=== PATIENT | male | born 1980 | race Caucasian/White ===

== ENCOUNTER 2017-04-12 02:18 | Emergency (ER) | payer OTHER ==
[2017-04-12 02:24] VITALS: TEMP 97.4; BMI 26.6
[2017-04-12] MEDS ORDERED: SODIUM CHLORIDE 1,000 ML IV STA (02:38)
--- NOTE | 2017-04-12 02:48 | PDOC ---
History of Present Illness - General Chief Complaint: Syncope/Near Syncope Stated Complaint: FAINTED Time Seen by Provider: 04/12/17 02:25 History Source: Patient, Spouse Exam Limitations: No Limitations - History of Present Illness Initial Comments: 04/12/17 02:44 37yo male patient with no significant past medical history presented to ED via EMS. Patient states he was at a friends house drinking alcohol ([employer] x 5 tall cans). He states he went into bedroom to get some rest, after an hour, he got up to use bathroom but felt dizzy and lightheaded. Patient ambulated into living room where he lied down on floor and told his , he wasn't feeling well. called 911. He denies CP, Abd pain, n/v/d, back pain, cough, congestion, fever, or any other complaints at this time. + smoker, +EtOH. Presenting Symptoms: Syncope Timing/Duration: reports: constant. denies: getting worse, changing over time, intermittent, resolved prior to arrival, gone now, other Severity/Quality: denies: mild, moderate, severe, aching, burning, dull, ingestion, pressure, sharp, stabbing, tearing, tightness, other Location: denies: substernal, central, epigastric, shoulder, back, abdomen, other Chest Pain Radiation: denies: no radiation, jaw, arms, neck, shoulders, back, sternal notch, epigastric, other Activities at Onset: denies: none, exertion, emotional upset, rest, sleep, no specific activity, eating, working, sexual intercourse, other Prior Chest Pain/Cardiac Workup: denies: No prior chest pain, No prior cardiac workup, Non-cardiac, Angina, Cardiac Cath, Cardiolye Scan, Echocardiography, Heart Attack, Pulmonary Embolism, Stress Test, Thallium Scan, Other Past History - Travel Traveled outside of the country in the last 30 days: No Close contact w/someone who was outside of country & ill: No - Past Medical History Allergies/Adverse Reactions: Allergies Allergy/AdvReac Type Severity Reaction Status Date / Time No Known Allergies Allergy Verified 04/12/17 02:23 Home Medications: Ambulatory Orders Cyclobenzaprine HCl [Flexeril] 5 mg PO TID #10 tablet 06/08/15 - Surgical History Appendectomy: Yes - Suicide/Smoking/Psychosocial Hx Smoking History: Never smoked Have you smoked in the past 12 months: No Number of Cigarettes Smoked Daily: 6 Information on smoking cessation initiated: No Hx Alcohol Use: No Drug/Substance Use Hx: No Substance Use Type: None Cardiac Specific PMH - Complaint Specific PMHX Abdominal Aortic Aneurysm: No Angina: No Cardiac Arrhythmia: No Cardiac Stent: No GERD: No Myocardial Infarction: No Pacemaker: No Pulmonary Embolus: No Valvular Heart Disease: No Peripheral Vascular Disease: No Review of Systems - Review of Systems Able to Perform ROS?: Yes Is the patient limited Turkish proficient: No Constitutional: No: Chills, Fever Respiratory: No: Cough, Wheezing Cardiac (ROS): Yes: Lightheadedness, Syncope. No: Chest Pain, Palpitations, Chest Tightness ABD/GI: No: Diarrhea, Nausea, Poor Appetite, Vomiting : No: Burning, Dysuria, Hematuria Musculoskeletal: No: Back Pain Integumentary: Yes: Sweating All Other Systems: Reviewed and Negative *Physical Exam - Vital Signs Last Vital Signs Temp Pulse Resp BP Pulse Ox 97.4 F L 60 17 124/70 98 04/12/17 02:23 04/12/17 05:43 04/12/17 05:43 04/12/17 05:43 04/12/17 05:43 - Physical Exam General Appearance: Yes: Nourished, Appropriately Dressed. No: Apparent Distress, Mild Distress, Moderate Distress, Severe Distress Neck: positive: Trachea midline, Normal Thyroid, Supple. negative: Stridor, Lymphadenopathy (R), Lymphadenopathy (L) Respiratory/Chest: positive: Lungs Clear, Normal Breath Sounds. negative: Chest Tender, Respiratory Distress, Accessory Muscle Use, Labored Respiration, Rhonchi, Stridor, Wheezing Cardiovascular: positive: Regular Rhythm, Regular Rate Gastrointestinal/Abdominal: positive: Normal Bowel Sounds, Soft. negative: Tender, Flat, Distended, Guarding, Rebound, Tenderness Musculoskeletal: positive: Normal Inspection. negative: CVA Tenderness, Decreased Range of Motion, Vertebral Tenderness Extremity: positive: Normal Capillary Refill, Normal Inspection, Normal Range of Motion. negative: Swelling, Calf Tenderness, Erythema, Inflammation Integumentary: positive: Normal Color, Dry, Warm Neurologic: positive: smooth stucco resurfacer II-XII NML intact, Fully Oriented, Alert, Normal Mood/ Affect, Normal Response, Motor Strength 5/5 ED Treatment Course - LABORATORY CBC & Chemistry Diagram: 04/12/17 03:25 04/12/17 03:25 - ADDITIONAL ORDERS Additional order review: Laboratory Results 04/12/17 04/12/17 04/12/17 03:25 03:25 03:25 D-Dimer < 200 Sodium 141 Potassium 4.4 Chloride 105 Carbon Dioxide 25 Anion Gap 11 BUN 17 Creatinine 1.1 Creat Clearance w eGFR > 60 Random Glucose 103 Calcium 9.0 Total Bilirubin 0.3 AST 27 ALT 50 Alkaline Phosphatase 167 H Creatine Kinase 134 Troponin I < 0.02 Total Protein 7.3 Albumin 3.8 Alcohol, Quantitative < 5.0 04/12/17 03:25 RBC 4.86 MCV 90.1 MCHC 33.7 RDW 13.5 MPV 8.8 Neutrophils % 63.2 Lymphocytes % 27.0 Monocytes % 6.9 Eosinophils % 2.3 Basophils % 0.6 - RADIOLOGY Radiology Studies Ordered: Category Date Time Status HEAD CT WITHOUT CONTRAST [CT] Stat CT Scan 04/12/17 02:38 Taken CHEST PA & LAT [RAD] Stat Radiology 04/12/17 02:38 Taken - Medications Given in the ED: ED Medications Discontinued Medications Generic Name Dose Route Start Last Admin Trade Name Freq PRN Reason Stop Dose Admin Sodium Chloride 1,000 mls @ 1,000 mls/hr 04/12/17 02:38 04/12/17 03:37 Normal Saline - IV 04/12/17 03:37 1,000 mls/hr ASDIR STA Administration *DC/Admit/Observation/Transfer Diagnosis at time of Disposition: Syncope, near - Discharge Dispostion Disposition: HOME Condition at time of disposition: Stable Admit: No - Referrals Referrals: Justin French MD [Staff Physician] - - Patient Instructions Printed Discharge Instructions: DI for Syncope in Adults (Fainting) Additional Instructions: Follow up with Dr. French (Neurology) this week. Call to schedule appointment. Avoid alcohol at this time. Drink plenty fluids. Return if symptoms worsen or any concerns for further evaluation. Print Language: TOGOLESE - Post Discharge Activity
[2017-04-12 03:43] LABS: BASO % 0.6 % (0-2.0); EOS % 2.3 % (0-4.5); HEMATOCRIT 43.8 % (35.4-49); HEMOGLOBIN 14.8 GM/dL (11.7-16.9); MCH 30.4 pg (25.7-33.7); MCHC 33.7 g/dl (32.0-35.9); MEAN CELL VOLUME 90.1 fl (80-96); MEAN PLT VOLUME 8.8 fl (7.5-11.1); MONO % 6.9 % (3.8-10.2); NEUT % 63.2 % (42.8-82.8); PLATELET COUNT 221 K/MM3 (134-434); RBC 4.86 M/mm3 (4.00-5.60); RDW 13.5 % (11.9-15.9); WHITE BLOOD COUNT 6.8 K/mm3 (4.0-10.0)
[2017-04-12 04:15] LABS: ALBUMIN 3.8 g/dl (3.4-5.0); ANION GAP 11 (8-16); BILIRUBIN,TOTAL 0.3 mg/dL (0.2-1.0); BLOOD UREA NITROGEN 17 mg/dL (7-18); CHLORIDE 105 mmol/L (98-107); CO2 25 mmol/L (21-32); CREATININE 1.1 mg/dL (0.7-1.3); GLUCOSE,RANDOM 103 mg/dL (74-106); POTASSIUM 4.4 mmol/L (3.5-5.1); SGOT/AST 27 U/L (15-37); SGPT/ALT 50 U/L (12-78); SODIUM 141 mmol/L (136-145); TOT PROT 7.3 g/dl (6.4-8.2)
[2017-04-12 04:18] LABS: ALK PHOS 167 U/L (45-117)
[2017-04-12 05:44] VITALS: BP 124/70; PULSE 60
--- NOTE | 2017-04-12 16:40 | EKG ---
Test Reason : Blood Pressure : / mmHG Vent. Rate : 067 BPM Atrial Rate : 067 BPM P-R Int : 166 ms QRS Dur : 092 ms QT Int : 382 ms P-R-T Axes : 051 059 044 degrees QTc Int : 403 ms NORMAL SINUS RHYTHM NORMAL ECG NO PREVIOUS ECGS AVAILABLE Confirmed by SALMA LAND MD ([id number]) on 04/12/2017 4:39:52 PM Referred By: Confirmed By:SALMA LAND MD
--- NOTE | 2017-04-17 12:33 | EKG ---
Test Reason : Blood Pressure : / mmHG Vent. Rate : 066 BPM Atrial Rate : 066 BPM P-R Int : 170 ms QRS Dur : 088 ms QT Int : 386 ms P-R-T Axes : 030 058 039 degrees QTc Int : 404 ms NORMAL SINUS RHYTHM NORMAL ECG WHEN COMPARED WITH ECG OF 12-APR-2017 03:07, NO SIGNIFICANT CHANGE WAS FOUND Confirmed by NOEMI CHIU MD ([id number]) on 04/17/2017 12:33:28 PM Referred By: Confirmed By:NOEMI CHIU MD
== END 2017-04-12 06:55 | disposition home or self-care (01) ==
LOC: JER 02:18
PROC: 3E0337Z Introduction of Electrolytic and Water Balance Substance into Peripheral Vein, Percutaneous Approach (ICD-10-PCS; principal; 2017-04-12)
DX: R55 Syncope and collapse (principal); F10.10 Alcohol abuse, uncomplicated
CPT/HCPCS: 36415; 70450-TC; 71046-TC; 80053; 80307; 82550; 84484; 85025; 85379; 93005; 93010; 96360; 99282-25

== ENCOUNTER 2018-02-27 11:42 | Emergency (ER) | payer SELFPAY ==
[2018-02-27 12:01] VITALS: BP 141/90; PULSE 90; TEMP 98.5; BMI 29.0
--- NOTE | 2018-02-27 12:37 | PDOC ---
History of Present Illness - General Chief Complaint: Pain, Acute Stated Complaint: ABD PAIN Time Seen by Provider: 02/27/18 12:12 - History of Present Illness Initial Comments: 02/27/18 12:58 The patient is a 38 year old male with no significant PMH who presents for evaluation of abdominal pain. The patient reports a 2-3 day history of poorly described upper abdominal pain with associated bloating and nausea worse after meals prompting his presentation to the ED for further evaluation. He notes that he has had similar symptoms in the past but has never been evaluated for them. He notes that he also has a sense of urgency with bowel movements after eating. He otherwise denies fevers, chills, SOB, chest pain, vomiting, or changes with urination. Past History - Past Medical History Allergies/Adverse Reactions: Allergies Allergy/AdvReac Type Severity Reaction Status Date / Time No Known Allergies Allergy Verified 02/27/18 11:57 Home Medications: Ambulatory Orders Bismuth Subsalicylate [Pepto-Bismol -] 524 mg PO BID 02/27/18 Pantoprazole Sodium [Protonix -] 40 mg PO DAILY #15 tablet.ec 02/27/18 COPD: No - Surgical History Appendectomy: Yes (when 6y/o) - Suicide/Smoking/Psychosocial Hx Smoking History: Smoker current status UNK Have you smoked in the past 12 months: No Number of Cigarettes Smoked Daily: 6 Information on smoking cessation initiated: No Hx Alcohol Use: No Drug/Substance Use Hx: No Substance Use Type: None Review of Systems - Review of Systems Comments:: 02/27/18 13:01 Constitutional: No fevers, chills, fatigue, malaise HEENT: No Rhinorrhea, nasal congestion, visual changes Cardiovascular: No chest pain, syncope, palpitations, lightheadedness Respiratory: No Cough, SOB, Hemoptysis, Gastrointestinal: Abdominal pain, nausea, bloating. No Vomiting, Constipation, Diarrhea, Melena Genitourinary: No Dysuria, Frequency, Urgency, Hesitancy, Hematuria, Flank pain Musculoskeletal: No Myalgia, arthralgia Skin: No rashes, itching, bruising, pallor Neurologic: No Headache, Dizziness, Numbness, Weakness, or Tingling Psychiatric: No Hallucinations. No SI or HI *Physical Exam - Vital Signs Last Vital Signs Temp Pulse Resp BP Pulse Ox 98.5 F 90 18 141/90 98 02/27/18 11:59 02/27/18 11:59 02/27/18 11:59 02/27/18 11:59 02/27/18 11:59 - Physical Exam Comments: 02/27/18 13:02 General Appearance: Nourished. No Apparent Distress HEENT: No Pharyngeal Erythema, Tonsillar Exudate, Tonsillar Erythema Neck: No Cervical Lymphadenopathy Respiratory/Chest: Lungs Clear, Normal Breath Sounds. No Crackles, Rales, Rhonchi, Wheezing Cardiovascular: Regular Rhythm, Regular Rate. No Murmur, Gallops, Rubs Gastrointestinal/Abdominal: Normal Bowel Sounds, Soft. Mild epigastric discomfort with palpation on exam. No RUQ tenderness. Negative Jones's sign. No Guarding, Rebound, Musculoskeletal: No CVA Tenderness Extremity: Normal Capillary Refill Integumentary: Normal Color, Dry, Warm Neurologic: Fully Oriented, Alert, Normal Mood/Affect, Normal Response, Moderate Sedation - Procedure Monitoring Vital Signs: Procedure Monitoring Vital Signs Temperature 98.5 F 02/27/18 11:59 Pulse Rate 90 02/27/18 11:59 Respiratory Rate 18 02/27/18 11:59 Blood Pressure 141/90 02/27/18 11:59 O2 Sat by Pulse Oximetry (%) 98 02/27/18 11:59 ED Treatment Course - LABORATORY CBC & Chemistry Diagram: 02/27/18 12:53 02/27/18 12:53 Medical Decision Making - Medical Decision Making 02/27/18 13:02 The patient is a 38 year old male with no significant PMH who presents for evaluation of abdominal pain. Differential includes but is not limited to: Gastritis, Pancreatitis, Cholecysitits, Infectious, Metabolic Derangement. Given the patient's history and physical exam, we will obtain a cbc, cmp, lipase , gallbladder us to evaluate further. We will treat with iv fluids, zofran, pepcid and continue to monitor and reassess while here in the ED. 02/27/18 15:00 CBC, cmp, lipase are unremarkable. Gallbladder US is unremarkable as read by our radiologist. The patient reports some improvement in his symptoms and has a benign abdominal exam. We are comfortable discharging the patient home with GI follow up. We discussed the results, plan, and return precautions with the patient who voiced understanding and is agreeable with the plan. *DC/Admit/Observation/Transfer Diagnosis at time of Disposition: Abdominal pain Qualifiers: Abdominal location: unspecified location Qualified Code(s): R10.9 - Unspecified abdominal pain - Discharge Dispostion Disposition: HOME Condition at time of disposition: Stable Decision to Admit order: No - Prescriptions Prescriptions: Pantoprazole Sodium [Protonix -] 40 mg PO DAILY #15 tablet.ec - Referrals Referrals: Shen Andres DO [Staff Physician] - - Patient Instructions Printed Discharge Instructions: DI for Abdominal Pain-Adult Additional Instructions: Please return to the ER if you experience concerning or worsening symptoms including worsening difficulty breathing, weakness, or chest pain. Your lab results were normal here in the ER. Your ultrasound was normal as well. We have sent a prescription to your pharmacy for an anti-acid that you should take daily to help with your symptoms. Please call to schedule a follow up appointment with our GI specialist within 2-3 days to discuss your ER visit and further management of your symptoms. - Post Discharge Activity
[2018-02-27] MEDS ORDERED: FAMOTIDINE 20 MG/50 ML IVPB 20 MG/50 ML MG IVPB ONE ×2 (12:41→12:53)
[2018-02-27] MEDS ORDERED: SODIUM CHLORIDE 1,000 ML IV STA (12:41)
[2018-02-27] MEDS ORDERED: ONDANSETRON 4 MG/2 ML VIAL IVPUSH ONE (12:41)
[2018-02-27] MEDS ORDERED: ONDANSETRON 4 MG/2 ML VIAL ONE (12:53)
[2018-02-27 13:07] LABS: BASO % 0.5 % (0-2.0); EOS % 1.4 % (0-4.5); HEMATOCRIT 42.2 % (35.4-49); LYMPH % 30.2 % (8-40); MCH 31.1 pg (25.7-33.7); MCHC 35.5 g/dl (32.0-35.9); MEAN CELL VOLUME 87.5 fl (80-96); MEAN PLT VOLUME 8.6 fl (7.5-11.1); MONO % 9.1 % (3.8-10.2); NEUT % 58.8 % (42.8-82.8); PLATELET COUNT 272 K/MM3 (134-434); RBC 4.82 M/mm3 (4.00-5.60); RDW 13.7 % (11.9-15.9)
[2018-02-27 13:38] LABS: ALBUMIN 4.1 g/dl (3.4-5.0); ALK PHOS 191 U/L (45-117); ANION GAP 7 MMOL/L (8-16); BILIRUBIN,TOTAL 0.4 mg/dL (0.2-1); BLOOD UREA NITROGEN 12 mg/dL (7-18); CHLORIDE 106 mmol/L (98-107); CO2 25 mmol/L (21-32); CREATININE 0.9 mg/dL (0.55-1.3); GLUCOSE,RANDOM 76 mg/dL (74-106); LIPASE 156 U/L (73-393); POTASSIUM 4.1 mmol/L (3.5-5.1); SGOT/AST 42 U/L (15-37); SGPT/ALT 76 U/L (13-61); SODIUM 138 mmol/L (136-145); TOT PROT 7.6 g/dl (6.4-8.2)
--- NOTE | 2018-02-27 14:51 | PDOC ---
Attending Attestation - Resident Resident Name: Alexis Hernandezel - ED Attending Attestation I have performed the following: I have examined & evaluated the patient, The case was reviewed & discussed with the resident, I agree w/resident's findings & plan, Exceptions are as noted - HPI HPI: 02/27/18 14:48 38 yo male with no pmhx here wtih c/o epigastric upper abdominal pain started one month ago. intermittent pain. has had off and on for one month. mild nausea , no vomiting. no f/c does not he has to have bm shortly after eating. only having 1 - 2 bm's day. has not seen his pcp yet. no sick contacts. no other comlaints. - Physicial Exam PE: 02/27/18 14:49 on exam pt with mild epigatric ttp. no rebound no guarding. awake alert lungs clear bilaterally heart rrr no mrg ext wwp no edema. skin warm and dry. nuero alert oriented x 3. - Medical Decision Making 02/27/18 14:50 differential gastritis, pud, cholelithiasis, cholecystitis, colitis. irritable bowel. plan labs us ruq, . labs noted for mild lft abnoramlity. us ruq normal. will dc home follow up with gi. recommend gi prophylaxis.
== END 2018-02-27 15:30 | disposition home or self-care (01) ==
LOC: JER 11:42
PROC: 3E033GC Introduction of Other Therapeutic Substance into Peripheral Vein, Percutaneous Approach (ICD-10-PCS; principal; 2018-02-27)
PROC: 3E0337Z Introduction of Electrolytic and Water Balance Substance into Peripheral Vein, Percutaneous Approach (ICD-10-PCS; 2018-02-27)
DX: R10.9 Unspecified abdominal pain (principal)
CPT/HCPCS: 36415; 76705-TC; 80053; 83690; 85025; 99282-25; J7030

== ENCOUNTER 2019-05-23 22:00 | Emergency (ER) | payer SELFPAY ==
[2019-05-23 22:10] VITALS: TEMP 98; BMI 28.4
[2019-05-23] MEDS ORDERED: LIDOCAINE 5% TOPICAL PATCH TP ONE (22:35)
--- NOTE | 2019-05-23 22:35 | PDOC ---
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 - Physicial Exam PE: 05/23/19 22:37 Afebrile VSS heart and lungs normal abd soft NT ND no C/C/E no flank pain iwth palpation - Medical Decision Making 05/24/19 01:17 Patient Name: YESENIA JUAREZ THIS IS A PRELIMINARY REPORT FROM [facility] DATE OF SERVICE: 2019-05-23 23:26:22 IMAGES: 324 EXAM: LUMBAR SPINE CT W/O CONTRAST HISTORY: Sciatic pain COMPARISON: None. FINDINGS: Lumbar vertebrae are normally aligned. No fracture or destructive bone lesion. There is a focal central disc protrusion at L5-S1 indenting the canal. No other lumbar disc abnormalities were identified. Please note, however, that MRI is more sensitive for evaluation of disc disease as well as canal/nerve root disease. 05/24/19 01:33 Pt feels minimally improved in the ER 05/24/19 01:33 He will be discharged home with neuro consult and with pain meds 05/24/19 03:07 We tried to discharge patient and he cannot walk. He will be admitted 05/24/19 05:29 P tells us that he can walk now and he is up nd about and he is ready to go. Heart Score/ECG Review - ECG Intrepretation Rhythm: Regular Rhythm - Tyro Tyro: Normal - P and KS Prominent R with upright T in V1 (true posterior FL): No Delta Wave(s) Present: No WPW: No - QRS Poor R Wave Progression: No Q Wave Present: No - ST and T Early Repolarization: No Non Specific ST-T Wave changes: No Flattened T Waves: No Prolonged Q-T Interval: No - ECG Impressions Normal ECG: Yes Non-specific ST Elevation: No Ischemic Changes: No Bradycardia: No Torsades logan Pointes: No WPW: No
[2019-05-23] MEDS ORDERED: KETOROLAC TROMETHAMINE 60 MG/2 ML VIAL IM ONE (22:36)
[2019-05-23] MEDS ORDERED: diazePAM 5 MG TABLET PO ONE (22:36)
[2019-05-23] MEDS ORDERED: METHOCARBAMOL 500 MG TABLET PO ONE (22:36)
[2019-05-23] MEDS ORDERED: METHOCARBAMOL 500 MG TABLET ONE (22:40)
[2019-05-23] MEDS ORDERED: KETOROLAC TROMETHAMINE 60 MG/2 ML VIAL ONE (22:40)
[2019-05-23] MEDS ORDERED: diazePAM 5 MG TABLET ONE (22:41)
[2019-05-23] MEDS ORDERED: LIDOCAINE 5% TOPICAL PATCH ONE (22:41)
--- NOTE | 2019-05-23 23:22 | PDOC ---
History of Present Illness - General History Source: Patient Exam Limitations: No Limitations - History of Present Illness Initial Comments: 05/24/19 05:06 39 yo M with no past medical history presents to the emergency department with lower back pain that has been worsening since this morning. 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 Per the patient, the pain is spasm like, 10/10, worsens with movement and lying flat and relieving with flexion of the hips. He endorses having tingling sensation radiating from his lower back to the ankles bilaterally. He has taken 3x 500 mg of tylenol without relief. Denies trauma. Denies the following: fevers, chills, SOB, chest pain, dysuria, hematuria, diarrhea, urinary and bowel incontinence, anal paresthesia, FND, and abdominal pain. <Johnny Singleton - Last Filed: 05/24/19 05:06> <Joelle Cannon - Last Filed: 05/24/19 05:21> - General Chief Complaint: Back Pain Stated Complaint: BACK PAIN Time Seen by Provider: 05/23/19 22:27 Past History - Past Medical History COPD: No - Surgical History Appendectomy: Yes (when 6y/o) - Psycho Social/Smoking Cessation Hx Smoking History: Never smoked Have you smoked in the past 12 months: No Number of Cigarettes Smoked Daily: 6 Hx Alcohol Use: No Drug/Substance Use Hx: No Substance Use Type: None <Johnny Singleton - Last Filed: 05/24/19 05:06> <Joelle Cannon - Last Filed: 05/24/19 05:21> - Past Medical History Allergies/Adverse Reactions: Allergies Allergy/AdvReac Type Severity Reaction Status Date / Time No Known Allergies Allergy Verified 05/23/19 22:08 Home Medications: Ambulatory Orders Bismuth Subsalicylate [Pepto-Bismol -] 524 mg PO BID 02/27/18 Pantoprazole Sodium [Protonix -] 40 mg PO DAILY #15 tablet.ec 02/27/18 *Physical Exam - Vital Signs Last Vital Signs Temp Pulse Resp BP Pulse Ox 98 F 88 18 125/77 99 05/23/19 22:08 05/23/19 22:08 05/23/19 22:08 05/23/19 22:08 05/23/19 22:08 <Johnny Singleton - Last Filed: 05/24/19 05:06> - Vital Signs Last Vital Signs Temp Pulse Resp BP Pulse Ox 98 F 70 18 114/72 97 05/23/19 22:08 05/24/19 03:20 05/24/19 03:20 05/24/19 03:20 05/24/19 03:20 <Joelle Cannon - Last Filed: 05/24/19 05:21> ED Treatment Course - LABORATORY CBC & Chemistry Diagram: 05/24/19 02:47 05/24/19 02:47 - Medications Given in the ED: ED Medications Discontinued Medications Generic Name Dose Route Start Last Admin Trade Name Freq PRN Reason Stop Dose Admin Diazepam 5 mg 05/23/19 22:36 05/23/19 22:50 Valium - PO 05/23/19 22:37 5 mg ONCE ONE Administration Ketorolac Tromethamine 60 mg 05/23/19 22:36 05/23/19 22:50 Toradol Injection - IM 05/23/19 22:37 60 mg ONCE ONE Administration Lidocaine 1 patch 05/23/19 22:35 05/23/19 22:51 Lidoderm Patch - TP 05/23/19 22:36 1 patch ONCE ONE Administration Methocarbamol 1,000 mg 05/23/19 22:36 05/23/19 22:50 Robaxin - PO 05/23/19 22:37 1,000 mg ONCE ONE Administration <Johnny Singleton - Last Filed: 05/24/19 05:06> - LABORATORY CBC & Chemistry Diagram: 05/24/19 02:47 05/24/19 02:47 - ADDITIONAL ORDERS Additional order review: Laboratory Results 05/24/19 02:47 Sodium 140 Potassium 4.2 Chloride 106 Carbon Dioxide 26 Anion Gap 8 BUN 20.4 H Creatinine 1.1 Est GFR (CKD-EPI)AfAm 98.18 Est GFR (CKD-EPI)NonAf 84.71 Random Glucose 110 H Calcium 9.3 Total Bilirubin 0.4 AST 94 H ALT 94 H Alkaline Phosphatase 185 H Total Protein 7.8 Albumin 4.3 05/24/19 02:47 RBC 4.91 MCV 89.5 MCHC 34.3 RDW 13.4 MPV 8.6 Neutrophils % 52.9 Lymphocytes % 36.4 D Monocytes % 8.8 Eosinophils % 1.5 Basophils % 0.4 - RADIOLOGY Radiology Studies Ordered: Category Date Time Status LUMBAR SPINE CT W/O CONTRAST [CT] Stat CT Scan 05/23/19 22:34 Taken - Medications Given in the ED: ED Medications Discontinued Medications Generic Name Dose Route Start Last Admin Trade Name Gabriela PRN Reason Stop Dose Admin Acetaminophen 1,000 mg 05/24/19 02:31 05/24/19 03:25 Ofirmev Injection - IVPB 05/24/19 02:32 1,000 mg ONCE ONE Administration Diazepam 5 mg 05/23/19 22:36 05/23/19 22:50 Valium - PO 05/23/19 22:37 5 mg ONCE ONE Administration Ketorolac Tromethamine 60 mg 05/23/19 22:36 05/23/19 22:50 Toradol Injection - IM 05/23/19 22:37 60 mg ONCE ONE Administration Lidocaine 1 patch 05/23/19 22:35 05/23/19 22:51 Lidoderm Patch - TP 05/23/19 22:36 1 patch ONCE ONE Administration Methocarbamol 1,000 mg 05/23/19 22:36 05/23/19 22:50 Robaxin - PO 05/23/19 22:37 1,000 mg ONCE ONE Administration <Joelle Cannon - Last Filed: 05/24/19 05:21> Discharge - Discharge Information Problems reviewed: Yes - Admission No <Johnny Singleton - Last Filed: 05/24/19 05:06> - Admission Yes <Joelle Cannon - Last Filed: 05/24/19 05:21> - Discharge Information Clinical Impression/Diagnosis: Back pain, Unable to ambulate Condition: Guarded - Follow up/Referral Referrals: Javier Love MD [Primary Care Provider] - Pablo Liu DO [Staff Physician] - - Patient Discharge Instructions Patient Printed Discharge Instructions: DI for Low Back Pain Additional Instructions: You were seen in the emergency department for your back pain. Please follow up with the orthopedic physician within 1 week after discharge for follow up care and management. Please return to the emergency department if you have worsening symptoms or new concerning symptoms such as inability to walk, inability to pee and defecate, and unable to feel the anal region. Thank you. Lo vieron en el departamento de emergencias por phan dolor de espalda. Denise un seguimiento con el mdico ortopdico dentro de 1 semana despus del lali para recibir atencin y manejo de seguimiento. Regrese al departamento de emergencias si tiene sntomas empeorados o nuevos sntomas preocupantes, didi incapacidad para caminar, incapacidad para orinar y defecar, y no puede sentir la regin anal. Letty. - Post Discharge Activity Work/Back to School Note: Back to Work
[2019-05-24] MEDS ORDERED: ACETAMINOPHEN 1000 MG/100 ML VIAL (NON FORMULARY) IVPB ONE (02:31)
[2019-05-24 03:08] LABS: BASO % 0.4 % (0-2.0); EOS % 1.5 % (0-4.5); HEMOGLOBIN 15.1 GM/dL (11.7-16.9); LYMPH % 36.4 % (8-40); MCH 30.7 pg (25.7-33.7); MCHC 34.3 g/dl (32.0-35.9); MEAN CELL VOLUME 89.5 fl (80-96); MEAN PLT VOLUME 8.6 fl (7.5-11.1); MONO % 8.8 % (3.8-10.2); NEUT % 52.9 % (42.8-82.8); PLATELET COUNT 269 K/MM3 (134-434); RBC 4.91 M/mm3 (4.00-5.60); RDW 13.4 % (11.9-15.9); WHITE BLOOD COUNT 7.6 K/mm3 (4.0-10.0)
[2019-05-24 03:21] VITALS: BP 114/72; PULSE 70
[2019-05-24 03:42] LABS: ALBUMIN 4.3 g/dl (3.4-5.0); BILIRUBIN,TOTAL 0.4 mg/dL (0.2-1); BLOOD UREA NITROGEN 20.4 mg/dL (7-18); CALCIUM 9.3 mg/dL (8.5-10.1); CREATININE 1.1 mg/dL (0.55-1.3); POTASSIUM 4.2 mmol/L (3.5-5.1); TOT PROT 7.8 g/dl (6.4-8.2)
--- NOTE | 2019-05-24 09:12 | EKG ---
Test Reason : Blood Pressure : / mmHG Vent. Rate : 064 BPM Atrial Rate : 064 BPM P-R Int : 172 ms QRS Dur : 090 ms QT Int : 390 ms P-R-T Axes : 037 064 036 degrees QTc Int : 402 ms NORMAL SINUS RHYTHM NORMAL ECG WHEN COMPARED WITH ECG OF 12-APR-2017 05:40, NO SIGNIFICANT CHANGE WAS FOUND Confirmed by Davion Viramontes ([id number]) on 05/24/2019 9:11:40 AM Referred By: Confirmed By:Davion Viramontes
== END 2019-05-24 05:36 | disposition home or self-care (01) ==
LOC: JER 22:00
PROC: 3E0233Z Introduction of Anti-inflammatory into Muscle, Percutaneous Approach (ICD-10-PCS; principal; 2019-05-23)
PROC: 3E033NZ Introduction of Analgesics, Hypnotics, Sedatives into Peripheral Vein, Percutaneous Approach (ICD-10-PCS; 2019-05-23)
DX: M54.5 Low back pain (principal); R26.2 Difficulty in walking, not elsewhere classified
CPT/HCPCS: 36415; 72131-TC; 80053; 85025; 93005; 93010; 99285-25; J0131